=== PATIENT | male | born 1955 | race Caucasian/White ===

== ENCOUNTER 2023-02-25 11:14 | Emergency (ER) | payer OTHER ==
[2023-02-25] MEDS ORDERED: Sodium Chloride 0.9% 10 ML Syringe FLUSH PRN (11:29)
[2023-02-25 11:45] LABS: BASOPHILS PERCENT AUTO 0.2 % (0.0-1.0); EOSINOPHILS PERCENT AUTO 0.1 % (1.0-3.0); HEMATOCRIT 41.3 % (40.0-54.0); HEMOGLOBIN 13.9 g/dL (14.0-18.0); LYMPHOCYTES PERCENT AUTO 27.2 % (20.5-50.1); MEAN CORPUSCULAR HEMOGLOBIN 31.1 pg (27.0-34.0); MEAN CORPUSCULAR HGB CONC 33.7 g/dL (33.0-35.0); MEAN CORPUSCULAR VOLUME 92.4 fL (80-100); MONOCYTES PERCENT AUTO 19.4 % (2-8); NEUTROPHILS PERCENT AUTO 53.1 % (42.2-75.2); PLATELET COUNT,PLT 277 10^3/uL (150-450); RED BLOOD CELL COUNT 4.47 10^6/uL (4.6-6.2); WHITE BLOOD CELL COUNT,WBC 16.3 10^3/uL (5.0-10.0)
[2023-02-25] MEDS ORDERED: Sodium Chloride 0.9% 1,000 ML IV ONE (12:02)
[2023-02-25] MEDS ORDERED: Ondansetron 4 MG/2 ML SDV IVPUSH ONE (12:02)
[2023-02-25] MEDS ORDERED: HYDROmorphone 1 MG/ML Syringe IVPUSH ONE ×2 (12:02→12:29)
[2023-02-25 12:05] LABS: A/G RATIO 0.8; ALBUMIN 3.5 g/dL (3.4-5.0); ANION GAP 12.3 mEq/L (7-13); BILIRUBIN TOTAL 0.8 mg/dL (0.2-1.0); C-REACTIVE PROTEIN 17.37 ng/dL (<=0.50); CALCIUM 9.3 mg/dL (8.5-10.1); CREATININE 1.13 mg/dL (0.70-1.30); EST CRCL DRUG DOSING (CG) 63.7 mL/min; MAGNESIUM 1.8 mg/dL (1.8-2.4); POTASSIUM,K 4.3 mmol/L (3.5-5.1); PROTEIN TOTAL,TP 8.1 g/dL (6.4-8.2); PROTHROMBIN TIME 10.6 SEC (9.0-12.0); PTT,PARTIAL THROMBOPLSTIN TIME 29.4 SEC (22.0-34.0)
[2023-02-25 12:12] LABS: LACTIC ACID 2.6 mmol/L (0.4-2.0)
[2023-02-25] MEDS ORDERED: Iopamidol 612 MG/ML 100 ML Bottle IVPUSH ONE (12:22)
[2023-02-25] MEDS ORDERED: Piperacillin/Tazobactam 4.5 GM in Sodium Chloride 0.9% 100 ML IV ONE ×4 (12:29)
[2023-02-25 13:10] LABS: APPEARANCE,URINE TURBID (CLEAR); BILIRUBIN,URINE NEGATIVE (NEGATIVE); COLOR,URINE YELLOW (YELLOW); GLUCOSE,URINE NEGATIVE (NEGATIVE); KETONES,URINE NEGATIVE (NEGATIVE); LEUKOCYTE ESTERASE,URINE SMALL (NEGATIVE); NITRITE,URINE POSITIVE (NEGATIVE); OCCULT BLOOD,URINE TRACE-INTACT (NEGATIVE); PH,URINE >= 9.0 (5.0-9.0); PROTEIN,URINE >=300 (NEGATIVE)
[2023-02-25 13:12] LABS: CORONAVIRUS COVID-19 NAA NEGATIVE (NEGATIVE); INFLUENZA A NAA NEGATIVE (NEGATIVE); INFLUENZA B NAA NEGATIVE (NEGATIVE); RESPIRATORY SYNCYTIAL VIR NAA NEGATIVE (NEGATIVE)
[2023-02-25 13:20] LABS: AMORPHOUS SEDIMENT,URINE MODERATE /HPF (NOT SEEN); BACTERIA,URINE MODERATE /HPF (0-FEW/HPF); EPITHELIAL CELLS,URINE RARE /HPF (NOT SEEN); TRIPLE PHOSPHATE CRYSTALS,UR MANY /HPF (NOT SEEN)
[2023-02-25] MEDS ORDERED: Ertapenem 1 GM Vial IVPUSH ONE (14:17)
[2023-02-25] MEDS ORDERED: Ketorolac 30 MG/ML SDV IVPUSH ONE (14:17)
[2023-02-25] MEDS ORDERED: Tamsulosin 0.4 MG Cap.ER PO ONE (14:31)
== END 2023-02-25 15:25 | disposition home or self-care (01) ==
LOC: DL.ED 11:14
DX: N39.0 Urinary tract infection, site not specified (principal); N20.0 Calculus of kidney; N28.1 Cyst of kidney, acquired; F17.210 Nicotine dependence, cigarettes, uncomplicated; I10 Essential (primary) hypertension; Z20.822 Contact with and (suspected) exposure to COVID-19; Z86.16 Personal history of COVID-19; Z79.899 Other long term (current) drug therapy; Z88.8 Allergy status to other drugs, medicaments and biological substances
CPT/HCPCS: 0241U; 36415; 71045; 74177; 80053; 81001; 82150; 83605; 83690; 83735; 83880; 84145; 85025; 85610; 85730; 86140; 87086; 87088; 87186; 96361; 96365; 96375; 99284; A9270; J1170; J1335; J1885; J2405; J2543; J3490; J7030; Q9967